=== PATIENT | female | born 1985 | race Caucasian/White ===

== ENCOUNTER 2016-10-18 07:14 | Emergency (ER) | payer MEDICARE | END 2016-10-18 08:37 | disposition home or self-care (01) | LOC: ER 07:14 | DX: J01.90 Acute sinusitis, unspecified (principal); F17.210 Nicotine dependence, cigarettes, uncomplicated; Z79.899 Other long term (current) drug therapy | CPT/HCPCS: 87502 ==

== ENCOUNTER 2016-11-09 19:31 | Emergency (ER) | payer MEDICARE | END 2016-11-09 22:15 | disposition home or self-care (01) | LOC: ER 19:31 | DX: E86.0 Dehydration (principal); R50.9 Fever, unspecified; F17.210 Nicotine dependence, cigarettes, uncomplicated; Z98.890 Other specified postprocedural states | CPT/HCPCS: 87502; 96372; J1885 ==

== ENCOUNTER 2017-01-25 17:47 | Emergency (ER) | payer MEDICARE | END 2017-01-25 18:10 | disposition home or self-care (01) | LOC: ER 17:47 | DX: O99.611 Diseases of the digestive system complicating pregnancy, first trimester (principal); K02.9 Dental caries, unspecified; O99.331 Smoking (tobacco) complicating pregnancy, first trimester; F17.210 Nicotine dependence, cigarettes, uncomplicated; Z3A.10 10 weeks gestation of pregnancy; Z79.899 Other long term (current) drug therapy ==

== ENCOUNTER 2017-02-16 11:02 | Emergency (ER) | payer MEDICARE | END 2017-02-16 14:25 | disposition home or self-care (01) | LOC: ER 11:02 | DX: O21.9 Vomiting of pregnancy, unspecified (principal); O99.282 Endocrine, nutritional and metabolic diseases complicating pregnancy, second trimester; E86.0 Dehydration; O98.312 Other infections with a predominantly sexual mode of transmission complicating pregnancy, second trimester; A59.9 Trichomoniasis, unspecified; Z3A.14 14 weeks gestation of pregnancy | CPT/HCPCS: 36415; 96361; 96374; J2550 ==